=== PATIENT | male | born 2005 | race Caucasian/White ===

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

== ENCOUNTER 2024-02-04 13:48 | Emergency (ER) | payer OTHER, SELFPAY ==
[2024-02-04 13:49] VITALS: BP 142/88; PULSE 101; RESP 16; O2SAT 97
--- NOTE | 2024-02-04 14:00 | XRR_ITS ---
PROCEDURE INFORMATION: Exam: XR Right Hand Exam date and time: 02/04/2024 2:09 PM Age: 18 years old Clinical indication: Injury or trauma; Other: Staple in hand; Puncture; Right; Additional info: Staple in hand; Removed; Eval for retained piece TECHNIQUE: Imaging protocol: Radiologic exam of the right hand. Views: 3 or more views. COMPARISON: No relevant prior studies available. FINDINGS: Bones/joints: Normal. Soft tissues: Normal. XR/XR hand RT min 3V* [id number] IMPRESSION: No acute findings.
--- NOTE | 2024-02-04 14:00 | W.ED.SKABFB ---
HPI - Skin/Abscess/Foreign Bdy General: Chief complaint: Wound/Laceration Stated complaint: staple in hand Time Seen by Provider: 02/04/24 13:49 Source: patient and EMS Mode of arrival: EMS Limitations: no limitations History of Present Illness: Patient is a 18-year-old male who presents to ED today via EMS for evaluation and treatment of a staple to his right hand. Patient states he was woodworking/using a staple gun when he accidentally stapled his right hand to a board. He arrives with the right hand fixed to a 2 x 4 with a staple to the lateral aspect of the hand. Last tetanus was approximately 4 years ago. He was given 200 mcg fentanyl by EMS prior to arrival. MD complaint: foreign body (R hand) Onset (ago): hour(s) Tetanus up to date: yes Location: R hand Severity: moderate Pain Consistency: constant Context: other (wood working; staple gun) Associated symptoms: Reports no associated symptoms Treatments prior to arrival: none Review of Systems Musc: Reports: extremity pain (R hand pain; staple stuck in hand) [facility] ED PFSH: Social History Current gender identity: Male Physical Exam Const: COMMON NORMALS: no acute distress, patient oriented x3, no limitations, healthy appearing, alert and well nourished Extremity: RIGHT UPPER EXTREMITY: Yes hand & digits Right hand and digits: Yes neurovascular exam (normal) and Yes other (see below) OTHER: patient arrives via EMS with his R hand on a 2x4 board with an intact staple through the skin of the lateral aspect of his R hand near 2nd/index MCP joint; skin was anesthetized with lidocaine with epi and staple was easily removed; following this patient had full ROM of index finger Neuro: COMMON NORMALS: patient oriented x3 SENSORIUM/ORIENTATION: Yes alert Skin: NARRATIVE SKIN EXAM: see above; fb R hand Procedures Foreign Body Removal Site: right and hand Description of foreign body: other (staple) Sedation/Analgesia: fentanyl (EMS gave 200 mcg in route; I did local with lido with epi) Technique: removal with forceps Confirmed by:: direct visualization Complications: none Post-procedure exam: awake, alert, normal BP, normal HR and normal O2 sat Neurovascular: normal distal pulse, normal capillary fill, distal light touch sensation intact, distal motor function normal and no signs of compartment syndrome Course Vital Signs: Vital signs: Vital Signs Pulse Rate 101 H 02/04/24 13:49 Respiratory Rate 16 02/04/24 13:49 Blood Pressure 142/88 02/04/24 13:49 Pulse Oximetry 97 02/04/24 13:49 Oxygen Delivery Me thod Room Air 02/04/24 13:49 MDM - Skin/Abscess/Foreign Bdy Medicial Decision Making Staple removed without difficulty. XR following removal normal. He has full range of motion and normal motor/sensory of the digit. I do not have any concern for tendon or bony involvement. He was placed on prophylactic antibiotics. Wound care/infection precautions for home discussed. This is Worker's Comp-registration aware of this. His tetanus is up-to-date. XR interpretation done by ED provider, pending radiology final review Discharge Plan Discharge Patient Disposition: Home Clinical Impression: Acute foreign body of right hand Qualifiers: Encounter type: initial encounter Qualified Code(s): S60.551A - Superficial foreign body of right hand, initial encounter Condition: Stable Prescriptions: New cephalexin 500 mg capsule 500 mg PO Q6H 7 Days Qty: 28 0RF No Action Adderall XR 20 mg capsule,extended release 24hr 20 mg PO DAILY Discharge Orders: Discharge ED (Routine); Ordered 02/04/24 Ordered By: Casandra Romero Patient Instructions: Puncture Wound (DC) Coding Level of Care Code ED Technician Chemical Cleaning for Brionna Pantoja
== END 2024-02-04 14:32 | disposition home or self-care (01) ==
PROVIDERS: Emergency Provider Physician Assistant
DX: S61.441A Puncture wound with foreign body of right hand, initial encounter (principal); W26.8XXA Contact with other sharp object(s), not elsewhere classified, initial encounter
CPT/HCPCS: 73130; 99283